=== PATIENT | male | born 1990 | race Caucasian/White ===

== ENCOUNTER 2022-08-03 20:53 | Emergency (ER) | payer OTHER, MEDICAID, SELFPAY ==
[2022-08-03 20:57] VITALS: BP 141/92; PULSE 74; RESP 18; TEMP 36.6; O2SAT 98; BMI 25.8
--- NOTE | 2022-08-03 20:59 | DI.RAD.S_ITS ---
PROCEDURE: XR FINGER LT MIN 2V INDICATIONS: injury with saw TECHNIQUE: AP hand, 2 views of the 2nd digit acquired. COMPARISON: None. FINDINGS: Bones: No fractures or dislocations. No suspicious bony lesions. Soft tissues: No suspicious soft tissue calcifications. IMPRESSION: 1. No fracture or dislocation. Dictated by: Johnathan Sands M.D. on 08/03/2022 at 22:16 Approved by: Johnathan Sands M.D. on 08/03/2022 at 22:16
[2022-08-03] MEDS: cephALEXin 250 MG CAP PREPACK 1 BOTTLE MISC (21:04)
[2022-08-03] MEDS: TET,DIPH,PERTUSS(ACELL),VAC/PF 0.5 ML SYRINGE IM (21:04)
[2022-08-03] MEDS: LIDOCAINE 1% 20 ML (21:07)
--- NOTE | 2022-08-03 21:18 | ED.UPPEXIN ---
HPI - Extremity Injury (Upper) General Chief Complaint: Extremity Injury, Upper Stated Complaint: lt finger,hand cut Time Seen by Provider: 08/03/22 20:59 Source: patient Mode of arrival: Ambulatory History of Present Illness HPI narrative: 32-year-old male nonsmoker with noncontributory medical history presents with an accidental injury to his left index finger. He was using a manual hand saw when it slipped in he suffered a laceration. He is had some bleeding and pain but denies any numbness, tingling or weakness, he denies any change in range of motion. He states that his last tetanus was quite a few years ago. He denies other injury and is otherwise well and free of complaint Related Data Previous Rx's Medication Instructions Recorded cephalexin 500 mg capsule 500 mg PO Q6H 7 days #28 caps 08/03/22 Allergies Allergy/AdvReac Type Severity Reaction Status Date / Time azithromycin Allergy Intermediate Hallucinati Verified 08/03/22 21:04 ons Review of Systems Review of Systems Narrative: GENERAL: Denies chills, fatigue, malaise, fever, sweats. HEENT: Denies sinus pain, ear pain, sore throat, difficulty swallowing, dizziness. RESPIRATORY: Denies dyspnea, cough, wheezing, hemoptysis, sputum. CARDIOVASCULAR: Denies chest pain, palpitations, orthopnea, edema, GASTROINTESTINAL: Denies nausea, vomiting, abdominal pain, diarrhea, constipation, melena. : Denies dysuria, frequency, incontinence, hematuria, urinary retention. MUSCULOSKELETAL: denies weakness, joint pain, or bony pain SKIN: See HPI NEUROLOGIC: Denies weakness, headache, numbness, change in speech, confusion, seizures, incoordination. PSYCHIATRIC: No concerning psychosocial issues. 12 point review of systems is negative except for those stated above Patient History Social History Smoking Status: Never smoker Smoking Status: Never smoker alcohol intake frequency: a few times a week Substance Use Type: does not use Exam Narrative Exam Narrative: GEN: AOx3 and in mild distress EYES: Pupils are equal, round, and reactive to light and accommodation. Extraoccular muscles are intact bilaterally. There is no subconjunctival hemorrhage or exudate. CHEST: Lungs are clear to auscultation bilaterally and free of wheezes, rales, or rhonchi. Heart rate is regular rhythm, there are no murmurs, clicks, rubs, or gallops. There is no chest wall tenderness. ABD: Abdomen is soft and nontender. There is no guarding or rebound. Bowel sounds are normal in all 4 quadrants. There is no mass or organomegaly. EXT: 3 cm laceration on the lateral aspect of the left index finger distal to the metacarpal phalangeal joint overlying the proximal phalanx. There is some irregularity to this and minimal active bleeding, this is absent of any obvious foreign body, no bony involvement. No obvious nerve or tendinous involvement Full painless ROM of all extremities with no loss of sensation or strength. SKIN: Warm, pink, and dry. No erythema or rash Initial Vital Signs Initial Vital Signs: Vital Signs Temperature 97.9 F 08/03/22 20:57 Pulse Rate 74 08/03/22 20:57 Respiratory Rate 18 08/03/22 20:57 Blood Pressure 141/92 H 08/03/22 20:57 Pulse Oximetry 98 08/03/22 20:57 Oxygen Delivery Method Room Air 08/03/22 20:57 Procedures Laceration Repair Laceration 1: Site: hand Side (If applicable): left Size (cm): 3 Description: irregular Depth: involves muscle layer Local Anesthetic: lidocaine 2% Amount of anesthesia used (mL): 4 Pre-repair: wound explored and cleansed with chlorhexadine Skin layer closed with: nylon Skin layer suture size: 4-0 Number of sutures: 5 Technique: simple, interrupted Orthopedic Splinting/Casting Injury #1: Side: left Upper Extremity Injury Location: finger Upper Extremity Immobilizer: aluminum form splint Post splinting neuro exam: intact Post splinting vascular exam: intact Placed by: Nursing Course Orders Ordered: ED Orders 08/03/22 20:59 XR finger LT min 2V Stat Discontinued Medications Cefazolin Sodium (Cephalexin 250 Mg Cap Prepack) 1 bottle MISC SEEINSTR ONE Stop: 08/03/22 21:00 Last Admin: 08/03/22 21:04 Dose: 1 bottle Documented By: REFUGIO Diphtheria/Tetanus/Acell Pertussis (Tet,Diph,Pertuss(Acell),Vac/Pf 0.5 Ml Syringe) 0.5 ml IM .ONCE ONE Stop: 08/03/22 21:00 Last Admin: 08/03/22 21:04 Dose: 0.5 ml Documented By: REFUGIO Vital Signs Vital signs: Vital Signs - 8 hr 08/03/22 20:57 08/03/22 21:33 Temperature 97.9 F Pulse Rate 74 77 Respiratory Rate 18 16 Blood Pressure 141/92 H 123/60 Pulse Oximetry 98 97 Oxygen Delivery Method Room Air Room Air MDM - Extremity Injury (Upper) MDM Narrative Medical decision making narrative: [32] year old patient presents with accidental laceration to left index finger Multiple etiologies for patient's symptoms considered including, but not limited to: [Bony involvement versus foreign body versus other] Prior Charts reviewed in our EMR Primary Historian: patient Imaging reviewed: No FB or bony involvement 3 cm irregularity laceration of left index finger. Patient has full range of motion, no obvious foreign body or tendon involvement, no bony involvement, neurovascularly intact. Tetanus is updated, wound is clean, closed and patient is placed on antibiotics then splinted by nursing. Importance of close follow-up discussed with patient, return precautions including worsening pain, redness, swelling or drainage as well as any other concerning symptoms Findings and discharge diagnosis discussed with patient/family followed by verbalization of understanding Return precautions discussed with patient/family whom verbalize understanding of diagnosis and plan Discharge Plan Departure Patient Disposition: Home Clinical Impression: Laceration of left index finger Instructions: DI for Laceration Repair -- Finger Activity Restrictions/Additional Instructions: *You have been diagnosed with [left index finger laceration and tetanus update] *What to do: *Please continue to take your regular medications as directed. [x ] New medication prescriptions sent to your pharmacy: [ [facility]] [ ] New medication written as a paper prescription [ ] No new medications given * Please keep the wound clean and dry to the best of your ability. Please monitor for signs of infection such as redness to the skin or increasing pain. Have the sutures/britton removed by your doctor in about 10-14 days. If you are unable to get into your doctor, we would be happy to remove the sutures/britton in that same timeframe. *If you do not have a primary care provider please contact the [facility] Resource line at [phone]. They will ask some questions about your medical history and help get you set up with a doctor in the community. *Return to Emergency Department if you should have any new, worsening or concerning symptoms, such as [fever greater than 101 F, shaking chills, worsening pain, persistent vomiting or other bothersome symptoms] Normal x-ray Prescriptions: New cephalexin 500 mg capsule 500 mg PO Q6H 7 Days Qty: 28 0RF Referrals: Josee Walker MD [Primary Care Provider] - Stand Alone Forms: Patient Portal/API
[2022-08-03 21:33] VITALS: BP 123/60; PULSE 77; RESP 16; O2SAT 97
== END 2022-08-03 21:35 | disposition home or self-care (01) ==
PROVIDERS: Emergency Provider Emergency Medicine; Family Provider Family Medicine; PCP Family Medicine
DX: S61.217A Laceration without foreign body of left little finger without damage to nail, initial encounter (principal); W27.0XXA Contact with workbench tool, initial encounter; Z23 Encounter for immunization
CPT/HCPCS: 13132; 73140; 90471; 99283; 90715